=== PATIENT | male | born 1980 | race Caucasian/White ===

== ENCOUNTER 2023-08-25 10:23 | Day surgery (SDC) | payer OTHER, SELFPAY ==
[2023-08-21 11:17] VITALS: BMI 30.9
[2023-08-21 11:57] VITALS: BMI 29.4
[2023-08-25 11:10] VITALS: BP 124/79; PULSE 56; RESP 18; TEMP 36.9; O2SAT 100
[2023-08-25] MEDS: LACTATED RINGERS 1,000 ML 150 ML IV CONT (11:13)
--- NOTE | 2023-08-25 11:19 | PM.HPGS ---
History of Present Illness History of Present Illness Consent: Risks, benefits, and alternatives have been discussed and questions answered. Patient agrees to proceed with procedure. Chief complaint: Melena, Other Specified Disease of Anus and Rectum Narrative: Adam Salazar is a 42 year old male Is referred because of blood in his stools for the past couple of weeks. Review of Systems Review of Systems: All systems reviewed & are unremarkable except as noted in HPI and below PMFSH Past Medical History Medical History Decreased libido Fatigue Hematochezia Hemorrhoids with complication Low testosterone Surgical History Surgical History No history of previous surgery Family History Family History Other Diabetes mellitus Family history of allergic disorder Social History Social History Smoking status: Never smoker Alcohol intake: current Substance use: never Substance use type: does not use Lack of Transportation: No Lack of Food: Never True Current Housing: I Have Housing Concerned About Future Housing: No Difficulty Paying Gas/Electric Bills: No Difficulty Paying for Meds: No Currently Unemployed: No Education: Don't Know Difficulty w/ Childcare or Family Care: No Living arrangements: with family Occupation/Education: occupation 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[employer] concerns: No Meds Home Medications and Allergies Home Medications Medication Instructions Recorded Confirmed Type testosterone cypionate 200 mg/mL 200 mg IM .bi weekly #10 mL 07/08/23 08/25/23 Rx intramuscular oil paroxetine HCl 10 mg tablet 10 mg PO DAILY 08/25/23 08/25/23 History Allergies Allergy/AdvReac Type Severity Reaction Status Date / Time No Known Allergies Allergy Verified 08/25/23 11:09 Vital Signs Vital Signs - 24 hr 08/25/23 11:10 Temperature 36.9 C Pulse Rate 56 L Respiratory Rate 18 Blood Pressure 124/79 Pulse Oximetry 100 Oxygen Delivery Room Air Exam Resp: Auscultation: clear to auscultation bilaterally Cardio: Rate: regular rate Rhythm: regular rhythm GI: GI Palp: Yes Soft to palpation and No Tenderness to palpation present (GI) Assessment and Plan Assessment and plan (1) Hematochezia: Code(s): K92.1 - Melena Status: Acute Assessment and Plan: Colonoscopy with possible biopsy or polypectomy or cautery or injection of substances.
--- NOTE | 2023-08-25 11:30 | WPDANESEPPF ---
Anes - Initial Pre Proc Eval Procedure: Operation Date: 08/25/23 12:30 Proposed Procedures p Diagnostic Colonoscopy - Wes Ashby MD Date/Time: 08/25/23 11:30 Surgeon: Wes Ashby MD Pre Op Diagnosis: Melena, Other Specified Disease of Anus and Rectum Patient Data Age: 42 Gender: M Height: 1.88 m Weight: 100.2 kg Last Vital Signs Temp 36.9 C 08/25/23 11:10 Pulse 56 L 08/25/23 11:10 Resp 18 08/25/23 11:10 BP 124/79 08/25/23 11:10 Pulse Ox 100 08/25/23 11:10 O2 Del Method Room Air 08/25/23 11:10 Allergies Allergy/AdvReac Type Severity Reaction Status Date / Time No Known Allergies Allergy Verified 08/25/23 11:09 Home Medications Medication Instructions Recorded Confirmed Type testosterone cypionate 200 mg/mL 200 mg IM .bi weekly #10 mL 07/08/23 08/25/23 Rx intramuscular oil paroxetine HCl 10 mg tablet 10 mg PO DAILY 08/25/23 08/25/23 History Patient hx anesthesia problems: none Family hx anesthesia problems: none Results Review: All pre-operative results and documents have been reviewed as part of the pre-operative evaluation. [facility] Past Medical History Medical History Decreased libido Fatigue Hematochezia Hemorrhoids with complication Low testosterone Surgical History Surgical History No history of previous surgery Family History Family History Other Diabetes mellitus Family history of allergic disorder Social History Social History Smoking status: Never smoker Alcohol intake: current Substance use: never Substance use type: does not use Lack of Transportation: No Lack of Food: Never True Current Housing: I Have Housing Concerned About Future Housing: No Difficulty Paying Gas/Electric Bills: No Difficulty Paying for Meds: No Currently Unemployed: No Education: Don't Know Difficulty w/ Childcare or Family Care: No Living arrangements: with family Occupation/Education: occupation 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 Informed Consent: The patient's anesthetic plan and its attendant risks and benefits were discussed with the patient/family/POA. Questions were solicited and answers provided to the satisfaction of the patient/family/POA.
[2023-08-25 11:55] VITALS: BP 99/82; PULSE 61; RESP 12; O2SAT 98
--- NOTE | 2023-08-25 12:05 | WPDANESPN ---
Anes - Prog Note Post-Op Date/Time: 08/25/23 12:05 Cardiovascular status: normal Respiratory status: normal Airway patency: baseline Mental status: baseline Post-Op hydration status: normal Vital Signs: Last Vital Signs Temp 36.9 C 08/25/23 11:10 Pulse 61 08/25/23 11:55 Resp 12 08/25/23 11:55 BP 99/82 L 08/25/23 11:55 Pulse Ox 98 08/25/23 11:55 O2 Del Method Room Air 08/25/23 11:55 Pain Score (VAS): 0 Patient Feedback: Patient satisfied with anesthetic care.
[2023-08-25 12:07] VITALS: BP 117/75; PULSE 61; RESP 20; O2SAT 100
[2023-08-25 12:15] VITALS: BP 111/72; PULSE 55; RESP 20; O2SAT 100
== END 2023-08-25 12:24 | disposition home or self-care (01) ==
PROVIDERS: PCP Family Medicine; Visit Provider Internal Medicine Gastroenterology
PROC: 0DJD8ZZ Inspection of Lower Intestinal Tract, Via Natural or Artificial Opening Endoscopic (ICD-10-PCS; CPT 45378; principal; 2023-08-25 12:30)
DX: K92.1 Melena (principal); K64.8 Other hemorrhoids
CPT/HCPCS: 45378

== ENCOUNTER 2024-10-10 10:14 | Outpatient (CLI) | payer OTHER, SELFPAY ==
--- NOTE | ~2024-10-10 | CT_ITS ---
EXAMINATION: CT sinus wo con DATE: 10/10/2024 10:28 INDICATION: Sinus disease TECHNIQUE: Computed tomography (CT) of the paranasal sinuses was performed without intravenous contra st. The dose-length product was 284.43 mGy-cm. Automated exposure control and iterative reconstructio n technique were employed. COMPARISON: None FINDINGS: There is mucosal thickening of the maxillary sinuses. Mastoids are pneumatized. There is mu cosal thickening of the ethmoid sinuses. No air-fluid levels. Rightward nasal septal deviation. Right ostiomeatal unit is partially occluded by soft tissue. IMPRESSION: 1. Mild sinus disease with occlusion right ostiomeatal unit. Reviewed, dictated and finalized at location A.
== END 2024-10-10 10:15 | disposition home or self-care (01) ==
LOC: MICIMG 10:15
PROVIDERS: PCP Nurse Practitioner Family; Visit Provider Otolaryngology
DX: J34.89 Other specified disorders of nose and nasal sinuses (principal); J32.2 Chronic ethmoidal sinusitis; R43.8 Other disturbances of smell and taste; H92.01 Otalgia, right ear
CPT/HCPCS: 70486

== ENCOUNTER 2024-12-23 06:05 | Day surgery (SDC) | payer OTHER, SELFPAY ==
[2024-12-06 13:38] VITALS: BMI 30.4
[2024-12-23] VITALS (12 sets, daily range): BP systolic 98–133; BP diastolic 53–83; PULSE 62–82; RESP 14–18; TEMP 36.8–37.2; O2SAT 93–100
--- OUTSIDE RECORDS SUMMARY | 2024-12-23 06:09 | XMS_ITS | Clinical Summary ---
Author Organization [facility] Address [address] [place] [address] Care Team Providers Care Photocopier Technician Name Role Phone Roni Youngyssa Marie VILLARREALP Primary Care Provider [phone] Allergies No known active allergies Medications ondansetron (ZOFRAN-ODT) 4 MG disintegrating tablet Take 1 tablet (4 mg total) by mouth every 8 (eight) hours as needed for Nausea. 20 tablet 5 Active butalbital-acetamin ophen-caffeine (FIORICET) 50-300-40 MG capsule Take 1 capsule by mouth every 4 (four) hours as needed for Pain. 30 capsule 5 Active PARoxetine (PAXIL) 10 MG tablet Take 2 tablets (20 mg total) by mouth daily. 4 Active Cetirizine HCl (ZYRTEC ALLERGY OR) Active fluticasone propionate (FLONASE) 50 MCG/ACT nasal spray Active testosterone cypionate (DEPO TESTOSTERONE) 200 MG/ML injection Inject 1 mL (200 mg total) into the muscle once. 5 Active oxyCODONE-acetamino phen (PERCOCET) 5-325 MG tabletIndications:A cute Pain < 7 Day Supply Take 1 tablet by mouth every 4 (four) hours as needed. Indications: Acute Pain < 7 Day Supply 10 tablet 5 Active Active Problems Problem Noted Date Diagnosed Date Appendicitis 09/03/2024 Acute appendicitis 09/03/2024 Social History Tobacco Use Types Packs/Day Years Used Date Smoking Tobacco: Never Smokeless Tobacco: Never Tobacco Cessation:Counseling Given: Not Answered Alcohol Use Standard Drinks/Week Comments Not Asked 0 (1 standard drink = 0.6 oz pur e alcohol) occasionally B1300 Health Literacy Answer Date Recor ded How often do you need to hav e someone help you when you read instructions, pamphlets, or other written material from your doctor or pharmacy? Never 09/03/2024 [facility] Utilities Answer Date Recorded In the past 12 months has th e [employer], gas, oil, or water company threatened to shut off services in your home? No 09/03/2024 Humiliation, Afraid, Rape, and Kick questionnair e Answer Date Recorded Within the last year, have y ou been afraid of your partner or ex-partner? No 09/03/2024 Within the last year, have y ou been humiliated or emotionally abused in other ways by your partner or ex-partner? No Within the last year, have y ou been kicked, hit, slapped, or otherwise physically hurt by your partner or ex-partner? No 09/03/2024 Within the last year, have y ou been raped or forced to have any kind of sexual activity by your partner or ex-partner? No 09/03/2024 Social Connection and Isolation Panel [NHANES] A nswer Date Recorded In a typical week, how many times do you talk on the phone with family, friends, or neighbors? Three times a week 09/03/2024 Frequency of Social Gatherin gs with Friends and Family Not on file 09/03/2024 How often do you attend chur or pentecostalism services? Never 09/03/2024 Do you belong to any clubs o r organizations such as roman catholic groups, unions, fraternal or athletic groups, or school groups? No 09/03/2024 How often do you attend meet ings of the clubs or organizations you belong to? Never 09/03/2024 Are you , , di vorced, , never , or living with a partner? 09/03/2024 AUDIT-C Answer Date Recorded Q1: How often do you have a drink containing alc ohol? 2-4 times a month 09/03/2024 Q2: How many drinks containi ng alcohol do you have on a typical day when you are drinking? 3 or 4 09/03/2024 Q3: How often do you have si x or more drinks on one occasion? Monthly 09/03/2024 Overall Financial Resource Strain (CARDIA) Answe r Date Recorded How hard is it for you to pa y for the very basics like food, housing, medical care, and heating? Not hard at all 09/03/2024 [facility] [place] [facility] Occupat ional Health - Occupational Stress Questionnaire Answer Date Recorded Do you feel stress - tense, restless, nervous, or anxious, or unable to sleep at night because your mind is troubled all the time - these days? Only a little 09/03/2024 Exercise Vital Sign Answer Date Recorde d On average, how many days pe r week do you engage in moderate to strenuous exercise (like a brisk walk)? 5 days 09/03/2024 On average, how many minutes do you engage in exercise at this level? 50 min 09/03/2024 Hunger Vital Sign Answer Date Recorded Within the past 12 months, y ou worried that your food would run out before you got the money to buy more. Never true 09/04/19 25 Within the past 12 months, t he food you bought just didn't last and you didn't have money to get more. Never true 09/03/2024 PRAPARE - Transportation Answer Date Re corded In the past 12 months, has l ack of transportation kept you from medical appointments or from getting medications? No 08/10 In the past 12 months, has l ack of transportation kept you from meetings, work, or from getting things needed for daily living? No 09/03/2024 Housing Stability Vital Sign Answer Theo e Recorded In the last 12 months, was t here a time when you were not able to pay the mortgage or rent on time? No 09/03/2024 Number of Times Moved in the Last Year Not on fi le 09/03/2024 At any time in the past 12 m [facility], were you homeless or living in a [facility] (including now)? No 09/03/2024 Sex and Gender Information Value Date Recorded Sex Assigned at Male 09/03/2024 11:58 AM CDT Legal Sex Male 7:17 PM CDT Gender Identity Not on file Sexual Orientation Not on file Last Filed Vital Signs Vital Sign Reading Time Taken Comments Blood Pressure 115/58 09/03/2024 6:39 PM CDT Pulse 77 09/03/2024 6:39 PM CDT Temperature 37.2 C (98.9 F) 09/03/2024 6:39 PM CDT Respiratory Rate 22 09/03/2024 6:39 PM CDT Oxygen Saturation 96% 09/03/2024 6:39 PM CDT Inhaled Oxygen Concentration - - Weight 106.3 kg (234 lb 5.6 oz) 09/03/2024 3:15 PM CDT Height 188 cm (6' 2) 09/03/2024 3:15 PM CDT Body Mass Index 30.09 09/03/2024 3:15 PM CDT Plan of Treatment Health Maintenance Due Date Last Done Comments Annual Physical 1985 Hepatitis C 2000 DTaP, Tdap and Td Vaccines ( 1 - Tdap) 2001 10/01/1987 Hepatitis B Vaccines (1 of 3 - 19+ 3-dose series) 2001 HPV Vaccines (1 - 3-dose SCD M series) 2009 COVID-19 Vaccine (1 - 2023-2 5 season) 2024 PHQ-2 (Physician [place]) 05/11/2024 Meningococcal B Vaccine Aged Out No l onger eligible based on patient's age to complete this topic Meningococcal Vaccine Aged Out No cm kim eligible based on patient's age to complete this topic Pneumococcal Vaccine: Pediat rics (0 to 5 Years) and At-Risk Patients (6 to 49 Years) Aged Out No longer eligi ble based on patient's age to complete this topic RSV Immunizations Under 20 Months Aged Out No longer eligible based on patient's age to complete this topic Insurance [facility] [place] [id number] [facility] CIGNA Advance Directives * Full Code (Latest Code Status on File) Date Activated Date Inactivated Comments 09/03/2024 5:45 PM 09/03/2024 9:15 PM Care Teams Photocopier Technician Relationship Specialty Start Date End Date Grace Young FNP [address] [place] [id number] PCP - General Nurse Practitioner Family 08/02/24
--- OUTSIDE RECORDS SUMMARY | 2024-12-23 06:09 | XMS_ITS | Encounter Summary ---
Author Organization [facility] Address [address] [place] [address] Care Team Providers Care Sheet Metal Assembler And Riveter Name Role Phone Unavailable Primary Care Provider Unavailabl e Encounter Details Date Type Department Care Team (Late st Contact Info) Description 10/19/2018 Lab Requisition [facility] Care DermPath Lab [address] [place] [id number] Antonella Woodson DO [address] [facility] [address] [place] [address] Social History Tobacco Use Types Packs/Day Years Used Date Smoking Tobacco: Never Assessed Sex and Gender Information Value Date Recorded Sex Assigned at Not on file Legal Sex Male 11:32 AM CDT Gender Identity Not on file Sexual Orientation Not on file documented as of this encounter Plan of Treatment Not on file documented as of this encounter Procedures Procedure Name Priority Date/Time Associated Diagnosis Comments DERMATOPATHOLOGY Routine 10/18/2018 12:0 0 AM CDT documented in this encounter Results * DERMATOPATHOLOGY (10/18/2018 12:00 AM CDT) Case Report Dermatopathology Report Case: [id number] Authorizing Provider: Antonella Woodson DO Collected: 10/18/2018 12:00 AM Pathologist: Gabriela Lux MD Received: 10/19/2018 01:37 PM Specimen: Skin, left shoulder 9 1:10 PM CDT DERMATOPATHOLOGY LABORATORY Final Diagnosis Specimen A. SKIN, left shoulder: EPIDERMOID CYST (L72.0) PRESENT AT MARGIN 9 1:10 PM CDT DERMATOPATHOLOGY LABORATORY at 1310 CDT Clinical History R/O cyst. Check margins. 9 1:10 PM CDT DERMATOPATHOLOGY LABORATORY Gross Description Specimen A: Received is one formalin filled container labeled with the patient's name and designated left shoulder. The specimen consists of a [id number] excision of skin. The tips are submitted in cassette 1. The specimen is serially sectioned and a retail account representative section is submitted in cassettes 2-4. Fragmented pieces of tissue measuring [id number] are submitted in cassette 5. Jar 1. 1:10 PM CDT DERMATOPATHOLOGY LABORATORY Microscopic Description Specimen A. SKIN, left shoulder: Within the dermis, there is a space lined by epithelium that resembles normal epidermis and the infundibular portion of the hair follicle. This lesion is present at the margin of the specimen. 1:10 PM CDT DERMATOPATHOLOGY LABORATORY Disclaimer An external and internal positive and negative controls are appropriate for the histochemical, immunohistochemical and immunofluorescence stain(s) in this case (if any), except where stated explicitly. The performance characteristics of the stain(s) cited in this report were developed and its performance characteristic determined by the Dermatopathology Laboratory at [facility], directed by Dr. Jeffery Chandler. These tests need not be, and therefore are not, approved by the [place] Food and Drug Administration. The tests are used for clinical purposes. Billing Codes Specimen Charges Stain Charges 77024 1 1:10 PM CDT DERMATOPATHOLOGY LABORATORY Embedded Images 1:10 PM CDT DERMATOPATHOLOGY LABORATORY Pathology/Cytolog y TISSUE SPECIMEN FROM SKIN / Unknown 10/18/2018 10/19/2018 1:37 PM CDT Antonella Woodson DO LAB - PATHOLOGY/CYTOLOGY ORDERABLES Final Result DERMATOPATHOLOGY LABORATORY [facility] - Department of Dermatology [address] [place] [address], [address] [place] [address], [facility] [phone] documented in this encounter Visit Diagnoses Not on filedocumented in this encounter
--- OUTSIDE RECORDS SUMMARY | 2024-12-23 06:09 | XMS_ITS | Clinical Summary ---
Author Organization [facility] Address [address] [facility] [place] [address] Care Team Providers Care Diesel Locomotive Firer Name Role Phone Unavailable Primary Care Provider Unavailabl e Source Comments [facility],non-owned Affiliates and Associated Physician Practices is amultiple site organization consisting of ambulatory clinics and hospital sitesin [place], [place], [place] and [place]. This disclosure is being madepursuant to the Care Everywhere program and may not contain all information available regarding this patient. Last updated 18.[facility] Social History Tobacco Use Types Packs/Day Years Used Date Smoking Tobacco: Never Assessed Sex and Gender Information Value Date Recorded Sex Assigned at Not on file Legal Sex Male 11:32 AM CDT Gender Identity Not on file Sexual Orientation Not on file Plan of Treatment Health Maintenance Due Date Last Done Comments LIPID TESTING 1982 HIV SCREENING 1997 HEPATITIS C SCREENING 10/10/2000 DTAP/TDAP/TD VACCINES (1 - Tdap) 2001 HEPATITIS B VACCINE (1 of 3 - 19+ 3-dose series) 2001 HPV VACCINE (1 - 3-dose SCDM series) 2009 COVID-19 VACCINE (1 - 2023-2 5 season) 2024 DEPRESSION SCREENING 05/11/2024 INFLUENZA VACCINE (#1) 2025 ZOSTER VACCINE (1 of 2) 2032 HIB VACCINE Aged Out No longer eligi ble based on patient's age to complete this topic MENINGOCOCCAL (Group B) VACC INE SHARED DECISION-MAKING Aged Out No longer eligibl e based on patient's age to complete this topic MENINGOCOCCAL GROUPS A/C/Y/W VACCINE Aged Out No longer eligible b ased on patient's age to complete this topic PNEUMOCOCCAL VACCINE Aged Out No long er eligible based on patient's age to complete this topic Insurance [facility]
[2024-12-23] MEDS: LACTATED RINGERS 1,000 ML 30 ML IV CONT ×3 (06:30→13:36)
[2024-12-23] MEDS: ACETAMINOPHEN 500 MG TABLET 1000 MG PO (06:38)
[2024-12-23] MEDS: OXYMETAZOLINE HCL 0.05% NAS 15 ML BTL (*BKC) 2 SPRAY NASAL ×3 (06:40→06:50)
--- NOTE | 2024-12-23 07:06 | P.PNAN_ITS ---
Anes - Initial Pre Proc Eval Procedure: Operation Date: 12/23/24 07:30 Proposed Procedures p Septoplasty - Attila Kauffman MD s Maxillary Antrostomy-Bilateral - MD mei Fraser Nasal Fracture and Submucous Resection of Inferior Turbinate-Bilateral - MD mei Fraser Complete Anterior and Posterior Ethmoidectomy-Bilateral, Frontal Sinusotomy with Balloon Dilation-Bilateral - Attila Kauffman MD Date/Time: 12/23/24 07:06 Surgeon: Attila Kauffman MD Pre Op Diagnosis: chronic ethmoidal and maxillary sinusitis Pre Op Diagnosis: Chronic Ethmoidal and Maxillary Sinusitis Patient Data Age: 44 Gender: M Height: 1.83 m Weight: 104.1 kg Last Vital Signs Temp 36.8 C 12/23/24 06:20 Pulse 62 12/23/24 06:20 Resp 16 12/23/24 06:20 BP 131/81 12/23/24 06:20 Pulse Ox 100 12/23/24 06:20 O2 Del Method Room Air 12/23/24 06:20 Allergies Allergy/AdvReac Type Severity Reaction Status Date / Time No Known Allergies Allergy Verified 12/23/24 06:50 Home Medications ?Medication ?Instructions ?Recorded ?Confirmed ?Type paroxetine HCl 10 mg tablet 10 mg PO DAILY 10/06/24 12/06/24 History testosterone cypionate 200 mg/mL 100 mg (0.5 mL) IM WEEKLY #10 mL 10/14/24 12/23/24 Rx intramuscular oil doxycycline hyclate 100 mg capsule 200 mg PO Q24H PRE SURGERY 12/06/24 12/23/24 History WNL Patient hx anesthesia problems: none Family hx anesthesia problems: none Results Review: All pre-operative results and documents have been reviewed as part of the pre- operative evaluation. [facility] Past Medical History Medical History Hematochezia Hemorrhoids with complication Low testosterone Decreased libido Fatigue Surgical History Surgical History History of appendectomy 09/03/2024 No history of previous surgery Family History Family History Other Diabetes mellitus Family history of allergic disorder Social History Social History Social History: 10/19/24 very confident with medical forms Smoking status: Never smoker Alcohol intake: current Substance use: never Substance use type: does not use Do You Feel Safe in your Home?: Yes Lack of Transportation: No Lack of Food: Never True Current Housing: I Have Housing Concerned About Future Housing: No Difficulty Paying Gas/Electric Bills: No Difficulty Paying for Meds: No Currently Unemployed: No Education: Associate Degree Difficulty w/ Childcare or Family Care: No Living arrangements: with family Occupation/Education: occupation 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 Informed Consent: The patient's anesthetic plan and its attendant risks and benefits were discussed with the patient/family/POA. Questions were solicited and answers provided to the satisfaction of the patient/family/POA.
--- NOTE | 2024-12-23 07:12 | PM.IMHP ---
H&P: HPI History of Present Illness Date/Time: 12/23/24 07:12 Chief Complaint: chronic sinusitis Narrative: This 44-year-old male is here to address chronic and recently worsened nasal blockage and sinus headaches. He reports a lifelong history of sinus problems, including postnasal drip, snoring, mouth breathing, and a diminished sense of smell, which worsened after he had COVID last year. For the past two months, these symptoms have intensified, and Flonase has not provided relief. He also reports severe, near-daily frontal headaches (rated 7/10), which can radiate to the right side of his head and cause right ear pain, despite various treatments for sinus disease, including antihistamines, decongestants, and nasal steroid sprays. A recent sleep study also indicated mild sleep apnea associated with his snoring. Review of Systems Review of Systems: All systems reviewed & are unremarkable except as noted in HPI and below Constitutional: Constitutional: Reports as per HPI ENT: Reports as per HPI Respiratory: Respiratory: Reports as per HPI Gastrointestinal: Gastrointestinal: Reports as per HPI [facility] Past Medical History Medical History Hematochezia Hemorrhoids with complication Low testosterone Decreased libido Fatigue Surgical History Surgical History History of appendectomy 09/03/2024 No history of previous surgery Family History Family History Other Diabetes mellitus Family history of allergic disorder Social History Social History Social History: 10/19/24 very confident with medical forms Smoking status: Never smoker Alcohol intake: current Substance use: never Substance use type: does not use Do You Feel Safe in your Home?: Yes Lack of Transportation: No Lack of Food: Never True Current Housing: I Have Housing Concerned About Future Housing: No Difficulty Paying Gas/Electric Bills: No Difficulty Paying for Meds: No Currently Unemployed: No Education: Associate Degree Difficulty w/ Childcare or Family Care: No Living arrangements: with family Occupation/Education: occupation 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[employer] Spiritual care concerns: No Meds Home Medications and Allergies Home Medications ?Medication ?Instructions ?Recorded ?Confirmed ?Type paroxetine HCl 10 mg tablet 10 mg PO DAILY 10/06/24 12/06/24 History testosterone cypionate 200 mg/mL 100 mg (0.5 mL) IM WEEKLY #10 mL 10/14/24 12/23/24 Rx intramuscular oil doxycycline hyclate 100 mg capsule 200 mg PO Q24H PRE SURGERY 12/06/24 12/23/24 History Allergies Allergy/AdvReac Type Severity Reaction Status Date / Time No Known Allergies Allergy Verified 12/23/24 06:50 Vital Signs Vital Signs - 24 hr 12/23/24 06:20 Temperature 36.8 C Pulse Rate 62 Respiratory Rate 16 Blood Pressure 131/81 Pulse Oximetry 100 Oxygen Delivery Room Air Exam Const: General: cooperative, healthy appearing, comfortable, no acute distress, well developed, alert, awake and Physically active Orientation/consciousness: oriented to person, oriented to place, oriented to time and patient oriented x3 HENMT: Head: normocephalic and atraumatic Ears: external ears normal and EAC's normal Face/Nose/Sinus: Normal external nose present and Normal nares present Mouth: Yes Normal oral and palatal mucosa present, Yes lip normal and Yes tongue normal Other: deviated nasal spetum Eyes: General: appearance normal, both eyes and all related structures Neck: Neck: normal visual inspection, full ROM and trachea midline Resp: Effort & Inspection: normal respiratory effort and able to speak in complete sentences Cardio: Rate: regular rate Neuro: General: oriented to person, oriented to place, oriented to time and patient oriented x3 Assessment and Plan Assessment and plan (1) Frontal sinus pain: Code(s): J34.89 - Other specified disorders of nose and nasal sinuses Status: Acute (2) Chronic ethmoidal sinusitis: Code(s): J32.2 - Chronic ethmoidal sinusitis Status: Acute (3) Chronic sinusitis of both maxillary sinuses: Code(s): J32.0 - Chronic maxillary sinusitis Status: Acute (4) Chronic sphenoidal sinusitis: Code(s): J32.3 - Chronic sphenoidal sinusitis Status: Acute Plan This 44-year-old male is here to address chronic and recently worsened nasal blockage and sinus headaches. He reports a lifelong history of sinus problems, including postnasal drip, snoring, mouth breathing, and a diminished sense of smell, which worsened after he had COVID last year. For the past two months, these symptoms have intensified, and Flonase has not provided relief. He also reports severe, near-daily frontal headaches (rated 7/10), which can radiate to the right side of his head and cause right ear pain, despite various treatments for sinus disease, including antihistamines, decongestants, and nasal steroid sprays. A recent sleep study also indicated mild sleep apnea associated with his snoring. Review of Systems Const All systems reviewed & are unremarkable except as noted in HPI and below Reports as per HPI ENT Reports as per HPI Exam Exam Const General: cooperative, healthy appearing, comfortable, no acute distress, well developed, alert, awake and Physically active Orientation/Consciousness: oriented to person, oriented to place, oriented to time and patient oriented x3 HENMT Head: normocephalic and atraumatic Ears: external ears normal and EAC's normal Face/Nose/Sinus: Normal external nose present and Normal nares present Mouth: Normal oral and palatal mucosa present, lip normal and tongue normal Other: Right-sided deviated nasal septum, left-sided nasal polyp originating from the superior meatus id Eyes General: appearance normal, both eyes and all related structures Neck General: Yes normal visual inspection, Yes full ROM and Yes trachea midline Resp Effort/Inspection: normal respiratory effort and able to speak in complete sentences Cardio Rate: Yes regular rate Neuro General: Yes oriented to person, Yes oriented to place and Yes oriented to time Assessment & Plan (1) Frontal sinus pain: Code(s): J34.89 - Other specified disorders of nose and nasal sinuses Category: Medical (2) Chronic ethmoidal sinusitis: Code(s): J32.2 - Chronic ethmoidal sinusitis Category: Medical (3) Chronic sinusitis of both maxillary sinuses: Code(s): J32.0 - Chronic maxillary sinusitis Category: Medical (4) Deviated nasal septum: Code(s): J34.2 - Deviated nasal septum (5) Hypertrophy of nasal turbinates: Code(s): J34.3 - Hypertrophy of nasal turbinates (6) Polyp of nasal sinus: Code(s): J33.8 - Other polyp of sinus (7) Chronic frontal sinusitis: Code(s): J32.1 - Chronic frontal sinusitis Plan 44-year-old male with right-sided deviated nasal septum, chronic sinusitis, sinus headache, nasal congestion, snoring, polyp of nasal sinus left side, and decreased sense of smell I have personally reviewed the CT scan images 10/10/2024: I found bilateral ostiomeatal complex blockage, bilateral anterior and posterior ethmoid opacities significant, bilateral frontal opacities, right-sided deviated nasal septum, and hypertrophy of nasal turbinate CT report reveals:FINDINGS: There is mucosal thickening of the maxillary sinuses. Mastoids are pneumatized. There is mucosal thickening of the ethmoid sinuses. No air-fluid levels. Rightward nasal septal deviation. Right ostiomeatal unit is partially occluded by soft tissue. I have discussed surgical options , alternatives, and risk of surgery, at this point patient wants to go ahead and do surgery to review symptoms as he had no improvement on topical nasal sprays Surgical intervention will include: Septoplasty, maxillary antrostomy bilateral, Fracture nasal inferior turbinate, bilateral inferior turbinate reduction, complete anterior and posterior ethmoidectomy bilateral,Bilateral frontal sinusotomies with balloon dilation -Risk of septoplasty procedures were discussed with the patient which include but not limited to; Bleeding, infection, septal perforation, saddle nose deformity, intranasal scarring -Risks for sinus surgery: injury to the skull base, injury to the eye, need for further surgery. Risk of recurrent disease is also discussed. All the questions were answered to the best of my ability and the patient wished to proceed. The procedures will be scheduled in a timely fashion.
--- NOTE | 2024-12-23 07:17 | W.PM.PROC2 ---
Procedure Note - Detailed Date of Procedure 12/23/24 Pre-op Diagnosis Chronic sinusitis-septal deviation -hypertrophy of inferior turbinates Post-op Diagnosis Same Procedure Performed ? Endoscopic septoplasty ? Nasal endoscopy with maxillary antrostomy bilaterally. ? Nasal endoscopy with ethmoidectomy, total (anterior and posterior) bilaterally. ? Nasal endoscopy with frontal sinusotomy bilaterally with balloon dilation. ? Bilateral inferior turbinate reduction (intramural (submucosal) ablation of the inferior turbinate.) ? Therapeutic fracture of the inferior turbinates bilaterally. Surgeon Attila Kauffman MD Anesthesia General Description of Procedure DESCRIPTION OF PROCEDURE: The patient was seen in the preoperative area, informed consent was checked and confirmed. The patient was taken to the operating room, sedated and placed under general anesthesia with an endotracheal tube . Eyes were taped and were prepped and draped in the usual sterile fashion. The nose was examined, and the left anterior septum was injected with 1% lidocaine with 1:100,000 epinephrine. [place] incision was made and a mucoperichondrial flap was elevated to expose the quadrangular cartilage and bony septum. Incision was then made anteriorly on the quadrangular cartilage to elevate the contralateral mucoperichondrial flap. The deviated quadrangular cartilage was excised with a Jaci knife. At least 1 cm of dorsal and caudal strut of quadrangular was left in place. We resected the deviated bony septum with a [place] and a pituitary forceps. After adequate resection of the posterior-inferior bony septum, the mucoperichondrial Flap was laid back in anatomic position.O4 vicryl sutures were used to closes the incision .Bradley splints were place in both nasal cavities and sutured in place using 04 vicryl sutures .3.5 cm nasal packing was placed in both nostrils We proceeded to the endoscopic sinus procedure starting on the right side. The agger nasi area was injected with 1% lidocaine with 1:100,000 epinephrine. The body of the middle turbinate was injected with 1% lidocaine with 1:100,000 epinephrine. The middle turbinate was gently medialized and the uncinectomy was performed with a pediatric [place] backbiter and the uncinectomy was completed with a shaver from the inferior-posterior attachment to the superior anterior attachment. The ethmoidectomy was performed by shaving the anterior ethmoid bulla and care was taken to protect the skull base in the lamina papyracea. Maxillary antrum was re-examined with a 30-degree scope. A ball probe was passed into the antrum and was further widened with a backbiter in the anterior-inferior aspect.right posterior ethmoidectomy was done through the inferio-medial quadrant of basal lamella ,posterior ethmoid cells were removed from anterior to posterior direction and from inferior to superior taking care to preserve skull base and lamina papyracea.then ,lateralization of the middle turbinate and shaving,opening of the posterior corridor and shaving the posterior part of the middle turbinate to widen the superior meatus Agger Nasi cells on right were opened with the shaver and 30-degree scope. Frontal sinus ostium was identified with lighted guidewire. Then the balloon was passed into the frontal sinus and the ostia was adequately dilated. Shaver was used to debride excess tissue to clear the frontal recess. Pledgets were placed in the ethmoid cavity. and we proceeded to the left side. and i proceeded to the left side : The agger nasi area was injected with 1% lidocaine with 1:100,000 epinephrine. The body of the middle turbinate was injected with 1% lidocaine with 1:100,000 epinephrine. The middle turbinate was gently medialized and the uncinectomy was performed with a pediatric [place] backbiter and the uncinectomy was completed with a shaver from the inferior-posterior attachment to the superior anterior attachment. The ethmoidectomy was performed by shaving the anterior ethmoid bulla and care was taken to protect the skull base in the lamina papyracea. Maxillary antrum was re-examined with a 30-degree scope. A ball probe was passed into the antrum and was further widened with a backbiter in the anterior-inferior aspect.left posterior ethmoidectomy was done through the inferio-medial quadrant of basal lamella ,posterior ethmoid cells were removed from anterior to posterior direction and from inferior to superior taking care to preserve skull base and lamina papyracea.then ,lateralization of the middle turbinate and shaving,opening of the posterior corridor and shaving the posterior part of the middle turbinate to widen the superior meatus Agger Nasi cells on left were opened with the shaver and 30-degree scope. Frontal sinus ostium was identified with lighted guidewire. Then the balloon was passed into the frontal sinus and the ostia was adequately dilated. Shaver was used to debride excess tissue to clear the frontal recess. Pledgets were placed in the ethmoid cavity. and we proceeded to the left side. We proceeded with submucosal inferior turbinate reduction, starting on the right side, a stab incision was made anterior mucosa of inferior turbinate. Submucosal pocket was created along the length of the inferior turbinate and the microdebrider blade 2mm thick was introduced anteriorly and into the whole submucosal pocket. Microdebrider was then used to remove the hypertrophied bony parts of anterior turbinate head and soft tissue with the outer layer intact. The residual inferior turbinate was then out fractured using Boies elevator. We proceeded to the left side. A stab incision was made on the anterior mucosa of inferior turbinate. Submucosal pocket was created along the length of the inferior turbinate and the microdebrider blade 2 mm thick was introduced anteriorly and into the whole submucosal pocket. Microdebrider was then used to remove the hypertrophied bony parts of anterior turbinate head and soft tissue with the outer layer intact. The residual inferior turbinate was then out fractured using Boies elevator. Pledgets were removed from ethmoid cavities, PosiSep X BAM Hemostat Dressing sponges were placed in ethmoid cavities bilaterally and infiltrated with a mixture of kenalog and cefazolin. The nose was then suctioned clean and at this point the care of the patient was then transferred to the anesthesiologist where the patient emerged from general anesthesia without complication. Estimated Blood Loss 20 (ml) Packing Yes (merocel packing ) Complications No immediate complications Condition Stable Disposition PACU [facility] Billing Surgery - Charge Forward: Surgery Billing
--- NOTE | 2024-12-23 07:40 | WPDHPUPDATE1 ---
History and Physical Update Update Date/Time: 12/23/24 07:40 History and Physical has been reviewed, including an updated exam of the patient. There are NO changes in the patient's condition. Risks, benefits, and alternatives have been discussed and questions answered. Patient agrees to proceed with procedure.
[2024-12-23] MEDS: ceFAZolin 2 GM in SODIUM CHLORIDE 0.9% IV 50 ML 100 ML IVPB (07:47)
[2024-12-23] MEDS: COCAINE HCL (*CRX) 4% TOP SOLN 4 ML VIAL 1 APPLIC (07:54)
[2024-12-23] MEDS: LIDO 1%/EPINEPHRINE 1:100,000 10 ML VIAL 4.5 ML INFILTRATE (11:00)
[2024-12-23] MEDS: MUPIROCIN 2% OINT 22 GM TUBE 1 APPLIC TOPICAL (11:53)
[2024-12-23] MEDS: oxyCODONE HCL (*CRX) 5 MG TAB IR PO (14:08)
[2024-12-26] MEDS: TRIAMCINOLONE ACET INJ SUSP 50 MG/5 ML VIAL 40 MG IM (12:24)
== END 2024-12-23 14:58 | disposition home or self-care (01) ==
PROVIDERS: PCP Nurse Practitioner Family; Visit Provider Otolaryngology Otolaryngology/Facial Plastic Surgery
PROC: (CPT 30520; principal; 2024-12-23 07:30)
PROC: (CPT 31253; 2024-12-23 07:30)
PROC: (CPT 31253; 2024-12-23 07:30)
PROC: (CPT 31253; 2024-12-23 07:30)
DX: J32.9 Chronic sinusitis, unspecified (principal); J34.3 Hypertrophy of nasal turbinates; J34.2 Deviated nasal septum
CPT/HCPCS: 31253; 31256; 30520; 30140